=== PATIENT | male | born 1975 | race Asian ===

== ENCOUNTER 2016-10-01 18:08 | Emergency (ER) | payer OTHER ==
[~2016-10-01] VITALS: Wt 100.0 kg
[2016-10-01 18:30] VITALS: BP 119/69; PULSE 82; RESP 20
--- NOTE | 2016-10-01 18:34 | ERD ---
ER Documentation Chief Complaint Date/Time DATE: 10/01/16 TIME: 18:33 Chief Complaint ETOH INTOXICATION BROUGHT BY FRIEND. SHAKING TODAY. ADMITS TO ETOH. HPI This is a 41-year-old male who presents to the emergency room after alcohol ingestion. The patient states that he did drink 2 beers 2 hours prior to arrival and denies any homicidal or suicidal ideation. ROS All systems reviewed and are negative except as per history of present illness. Medications Home Meds No Active Prescriptions or Reported Meds Allergies Allergies: Coded Allergies: No Known Allergy (Unverified , 01/24/12) PMhx/Soc History of Surgery: Yes (HERNIA REPAIR 3YEAR OLD) Anesthesia Reaction: No Hx Neurological Disorder: No Hx Respiratory Disorders: No Hx Cardiac Disorders: Yes (HTN ) Hx Psychiatric Problems: No Hx Miscellaneous Medical Probl: No Hx Alcohol Use: Yes (01/23/2012 1 OZ VODKA) Hx Substance Use: No Hx Tobacco Use: No Physical Exam Vitals Vital Signs Date Time Temp Pulse Resp B/P Pulse Ox O2 Delivery O2 Flow Rate FiO2 10/01/16 18:10 99.6 165 20 249/115 98 Physical Exam Const: [Disheveled appearance, no acute distress Head: Atraumatic Eyes: Normal Conjunctiva ENT: Normal External Ears, Nose and Mouth. Neck: Full range of motion..~ No meningismus. Resp: Clear to auscultation bilaterally Cardio: Regular rate and rhythm, no murmurs Abd: Soft, non tender, non distended. Normal bowel sounds Skin: No petechiae or rashes Back: No midline or flank tenderness Ext: No cyanosis, or edema Neur: Awake and alert Psych: Normal Mood and Affect Procedures/MDM This 41-year-old male presents to the emergency room for evaluation of alcohol ingestion. This patient denies homicidal or suicidal ideation will be discharged home and he is clinically sober. Departure Diagnosis: Primary Impression: Alcohol abuse Condition: Stable LASHAY ESPINOSA DO Oct 01, 2016 18:33
== END 2016-10-01 20:16 | disposition home or self-care (01) ==
LOC: E/R 18:08
DX: F10.120 Alcohol abuse with intoxication, uncomplicated (principal); I10 Essential (primary) hypertension
CPT/HCPCS: 99282

== ENCOUNTER 2017-10-21 01:35 | Inpatient (IN) | END 2017-10-23 09:30 | disposition home or self-care (01) | DRG 897 ==